=== PATIENT | female | born 1945 | race Caucasian/White ===

== ENCOUNTER 2025-07-31 08:01 | Outpatient (CLI) | payer MEDICARE, OTHER | END 2025-07-31 08:02 | disposition home or self-care (01) | LOC: CSHULT 08:01 | PROVIDERS: ATTEND Family Medicine | DX: R91.1 Solitary pulmonary nodule (principal); N28.1 Cyst of kidney, acquired; I51.7 Cardiomegaly; I25.10 Atherosclerotic heart disease of native coronary artery without angina pectoris; I25.84 Coronary atherosclerosis due to calcified coronary lesion | CPT/HCPCS: 71250; 76770 ==